=== PATIENT | female | born 1960 | race Caucasian/White ===

== ENCOUNTER → 2018-08-09 14:10 | Outpatient (CLI) | payer OTHER, SELFPAY ==
--- NOTE | 2018-08-09 | DI.CT.S_ITS ---
PROCEDURE: CT CHEST WO CON INDICATIONS: PULMONARY NODULES TECHNIQUE: Noncontrast 2.0-2.5 mm thick sections acquired from the pulmonary apices to the posterior costophrenic angles. 7 mm thick coronal and sagittal MIP reformats were then acquired. A low radiation dose technique was utilized. COMPARISON: [facility], CT, THORAX WITHOUT CONTRAST, 08/02/2017, 16:20. FINDINGS: Image quality: Diagnostic, given the low radiation dose technique. Lungs and pleura: Upper lobe predominant centrilobular emphysema. No acute consolidation, pleural effusion or pneumothorax. There is diffuse bibasilar posterior plantar scarring and mild central bronchial wall thickening. 5 mm pulmonary nodule adjacent to or involving the right pericardium on image 84 series 3 is unchanged. Additional 5 mm groundglass nodule is seen on image 97 series 3 in the subpleural left lower lobe which is also unchanged. Technically these require no further followup however continued screening examinations could be performed Mediastinum: Heart size is normal. No pericardial effusion. No mediastinal adenopathy by size criteria. Thoracic aorta and central pulmonary arteries are normal in size. Esophagus is normal in caliber. No hiatal hernia. Bones and chest wall: No suspicious bony lesions. No vertebral body compression fractures. No axillary or supraclavicular adenopathy by size criteria. Thyroid gland negative. Abdomen: There is a rim calcified gallstone incidentally noted. IMPRESSION: Stable examination since 08/02/17. At clinical discretion, continued annual CT lung screening surveillance could be performed. Dictated by: Riley Paniagua M.D. on 08/09/2018 at 14:56 Approved by: Riley Paniagua M.D. on 08/09/2018 at 15:01
== END ==
PROVIDERS: Visit Provider Family Medicine
DX: R91.8 Other nonspecific abnormal finding of lung field (principal); J43.2 Centrilobular emphysema; K80.80 Other cholelithiasis without obstruction
CPT/HCPCS: 71250

== ENCOUNTER → 2019-09-09 15:41 | Outpatient (CLI) | payer BC, SELFPAY ==
--- NOTE | 2019-09-09 | DI.CT.S_ITS ---
PROCEDURE: CT CHEST WO CON INDICATIONS: Other nonspecific abnormal finding of lung field TECHNIQUE: Noncontrast 5 mm thick sections acquired from the pulmonary apices to the posterior costophrenic angles. 1 mm lung window, 5 mm thick coronal and sagittal and 7 mm axial MIP reformats were then acquired. For radiation dose reduction, the following was used: automated exposure control, adjustment of mA and/or kV according to patient size. COMPARISON: [facility], CT, CT CHEST WO CON, 08/09/2018, 14:11. FINDINGS: Image quality: Excellent. Lungs and pleura: No acute air space opacities. Previously present small nodules within the lung parenchyma have not changed in size or morphology and measures 5 mm in maximal dimension, present on CT scanning from 08/02/17 and 08/09/18. No pleural effusions or pneumothorax. Central and peripheral airways are patent and normal in caliber. Mediastinum: Heart size is normal. No pericardial effusion. No mediastinal adenopathy by size criteria. Thoracic aorta and central pulmonary arteries are normal in size. Esophagus is normal in caliber. No hiatal hernia. Bones and chest wall: No suspicious bony lesions. No vertebral body compression fractures. No axillary or supraclavicular adenopathy by size criteria. Thyroid gland is not well-seen. Abdomen: Visualized upper abdominal solid organs and bowel loops appear normal in the absence of contrast. IMPRESSION: No new nodule is present. A 5 mm nodule abuts the right pericardial border and a sub-solid 5 mm nodule approximates the left lateral pleural surface at the mid lung, previously identified and benign in appearance. No followup recommended. These have been present since at least 08/02/17 CT scanning. Dictated by: Garrett Hendrix M.D. on 09/09/2019 at 16:47 Approved by: Garrett Hendrix M.D. on 09/09/2019 at 16:51
== END ==
PROVIDERS: PCP Family Medicine; Visit Provider Family Medicine
DX: R91.8 Other nonspecific abnormal finding of lung field (principal)
CPT/HCPCS: 71250